=== PATIENT | male | born 1985 | race African-American/Black ===

== ENCOUNTER 2016-06-21 02:40 | Emergency (ER) | payer OTHER, SELFPAY ==
[2016-06-21 03:27] LABS: #Lymphocytes 1.2 thou/uL (1.20-3.40); #Monocytes 0.3 thou/uL (0.11-0.59); #Neutrophils 3.2 thou/uL (1.40-6.50); %Basophils 0.7 % (0.0-1.0); %Eosinophils 0.3 % (0.0-10.0); %Lymphocytes 24.8 % (21.0-51.0); %Monocytes 6.5 % (0.0-10.0); %Neutrophils 67.7 % (42.0-75.0); Mean Corpuscular HGB CONC 33.6 g/dL (32.0-36.0); Mean Corpuscular Hemoglobin 28.1 pg (27.0-31.0); Mean Corpuscular Volume 83.6 fl (80.0-94.0); Mean Platelet Volume 8.9 fL (7.4-10.4); Platelet Count 201 thou/uL (130-400); RBC Distribution Width 11.4 % (11.5-14.5); White Blood Cell (WBC) Count 4.7 thou/uL (4.8-10.8)
[2016-06-21 03:47] LABS: Blood, Urine Negative (Negative); Clarity Clear (Clear); Glucose, Urine (Dipstick) Negative (Negative); Leukocyte Negative (Negative); Nitrite Negative (Negative); Protein, Urine (Dipstick) 30 mg/dL (Neg-Trace)
[2016-06-21 03:48] LABS: Bilirubin Negative (Negative); Icto Negative (Negative); Specific Gravity, Urine 1.035 (1.002-1.036)
[2016-06-21 03:49] LABS: Bacteria/HPF None Seen HPF (None Seen); RBC/HPF None Seen HPF (0-3); Squamous Epithelial 0-3 HPF (0-3); WBC/HPF None Seen HPF (0-3)
[2016-06-21 03:55] LABS: ALT (SGPT) 15 U/L (0-55); AST (SGOT) 29 U/L (5-34); Albumin 4.1 g/dL (3.5-5.0); Alkaline Phosphatase 72 U/L (40-150); Anion Gap 14 mmol/L (10-20); BUN (Urea Nitrogen) 16 mg/dL (8.9-20.6); Bilirubin, Total 0.8 mg/dL (0.2-1.2); Calc. Creatinine Clearance 0 mL/min (70-130); Calcium 9.2 mg/dL (7.8-10.44); Carbon Dioxide 23 mmol/L (22-29); Chloride 105 mmol/L (98-107); Estimated GFR-MDRD 90; Globulin 3.6 g/dL (2.4-3.5); Glucose 104 mg/dL (70-105); Potassium 3.7 mmol/L (3.5-5.1); Protein, Total 7.7 g/dL (6.0-8.3); Sodium 138 mmol/L (136-145)
[2016-06-21] MEDS ORDERED: Adacel (T-DAP) 0.5 ML VIAL ONE (04:05)
[2016-06-21] MEDS ORDERED: traMADol HCl 50 MG TAB ONE (04:53)
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
== END 2016-06-21 05:00 | disposition home or self-care (01) ==
LOC: NAV ERS 02:40
DX: S63.502A Unspecified sprain of left wrist, initial encounter (principal); V89.2XXA Person injured in unspecified motor-vehicle accident, traffic, initial encounter
CPT/HCPCS: 36415; 71010; 72125; 80053; 81003; 81015; 85025; 90471; 90715